=== PATIENT | female | born 1955 | race Caucasian/White ===

== ENCOUNTER 2017-03-05 12:33 | Emergency (ER) | payer OTHER ==
[~2017-03-05] VITALS: Ht 167.6 cm; Wt 80.1 kg
[~2017-03-05 12:33] MED LIST: BACTRIM,SEPT1 TABLET PO; FLEXERIL10 MG PO; IBUPROFEN800 MG PO; MOBIC15 MG PO; PHENAZOPYRIDIN200 MG PO; VITAMIN D35000 UNIT PO; VOLTAREN75 MG PO; ZIAC 10/6.251 TABLET; ZIAC 10/6.251 TABLET PO
[2017-03-05 13:50] LABS: HEMATOCRIT 39.7 % (36.0-46.0); MCH 32.6 PG (29.0-34.0); MCHC 35.3 G/DL (30.0-36.0); MCV 92.5 FL (83-99); MEAN PLAT.VOLUME 9.2 uM^3 (9.5-12.4); PLATELET COUNT 227 K/uL (156-360); RBC DIS.WIDTH-CV 12.2 % (11.8-14.6); RBC DIS.WIDTH-SD 41.9 % (39-53); RED BLOOD COUNT 4.29 M/uL (3.80-5.20); WHITE BLOOD COUNT 5.7 K/uL (4.1-10.2)
[2017-03-05 14:01] LABS: CHLORIDE 98 mEq/L (99-109); POTASSIUM 3.8 mEq/L (3.7-5.4); SODIUM 130 mEq/L (136-147)
[2017-03-05 14:02] LABS: GLUCOSE 87 mg/dL (70-99)
[2017-03-05 14:03] LABS: PROTHROMBIN TIME 10.1 (9.2-11.2); PTT 32.8 (25-32)
[2017-03-05 14:04] LABS: ANION GAP 7 MEQ/L (2-14)
[2017-03-05 14:06] LABS: GFR ESTIMATE (CALCULATED) > 59 mL/min/
[2017-03-05 14:07] LABS: UREA NITROGEN (BUN) 15 mg/dL (9-23)
[2017-03-05 14:12] LABS: TROP-I INTERPRETATION NEGATIVE; TROPONIN-I < 0.01 ng/mL (0.0-0.30)
[2017-03-05 18:50] LABS: TROP-I INTERPRETATION NEGATIVE; TROPONIN-I < 0.01 ng/mL (0.0-0.30)
[2017-03-05 19:17] VITALS: BP 135/76
== END 2017-03-05 19:25 | disposition home or self-care (01) ==
LOC: EME 12:33
PROVIDERS: Emergency Medicine
DX: R07.9 Chest pain, unspecified (principal)
CPT/HCPCS: 71020; 71275; 80048; 84484; 85027; 85610; 85730; 93005; 99281; 99285; J7030